=== PATIENT | male | born 1945 | race Caucasian/White ===

== ENCOUNTER 2025-05-09 13:15 | Inpatient (IN) | payer MEDICARE, OTHER ==
[~2025-05-09] VITALS: Ht 170.2 cm; Wt 59.0 kg
[2025-05-09] MEDS ORDERED: MAGN400T40 PO (13:34)
[2025-05-09] MEDS ORDERED: MAGN400O6 PO (13:34)
[2025-05-09] MEDS ORDERED: NA P133E RC (13:34)
[2025-05-09] MEDS ORDERED: ACET325C7 PO (13:34)
[2025-05-09] MEDS ORDERED: AMLO2.5T4 PO (13:34)
[2025-05-09] MEDS ORDERED: BISA10SU61 RC (13:34)
[2025-05-09] MEDS ORDERED: ACET-2605 PO (13:34)
[2025-05-09] MEDS ORDERED: MULT-213 PO (13:34)
[2025-05-09] MEDS ORDERED: CLON0.1T PO (13:34)
[2025-05-09] MEDS ORDERED: FAMO10TA41 PO (13:34)
[2025-05-09] MEDS ORDERED: LORA10CA PO (13:34)
[2025-05-09] MEDS ORDERED: DOCU-141 PO (13:34)
[2025-05-09] MEDS ORDERED: CHOL10005 PO (13:34)
[2025-05-09] MEDS ORDERED: SENN1TAB59 PO (13:34)
[2025-05-09] MEDS ORDERED: SODI15OR6 PO (13:34)
[2025-05-09] MEDS ORDERED: EMPA25TA PO (13:34)
[2025-05-09] MEDS ORDERED: NITR0.4T48 SL (13:34)
[2025-05-09] MEDS ORDERED: METF-442 PO (13:34)
[2025-05-09] MEDS ORDERED: ATOR10TA PO (13:34)
[2025-05-09] MEDS ORDERED: DIVA125T2 PO ×2 (13:34)
[2025-05-09] MEDS ORDERED: ASPI81TA31 PO (13:34)
[2025-05-09] MEDS ORDERED: LORAZEPAM 0.5 MG TABLET ONE (19:55)
[2025-05-09] MEDS: LORAZEPAM 0.5 MG TABLET PO ONE (20:00)
[2025-05-10] MEDS ORDERED: LORAZEPAM 0.5 MG TABLET PO PRN
[2025-05-10] MEDS ORDERED: TEMAZEPAM 7.5 MG CAPSULE PO PRN
[2025-05-10] MEDS ORDERED: MAG HYDROX/AL HYDROX/SIMETH 30 ML LIQUID UDC PO PRN
[2025-05-10] MEDS ORDERED: LORAZEPAM 1 MG TABLET PO PRN
[2025-05-10] MEDS ORDERED: MAGNESIUM HYDROXIDE 30 ML LIQUID UDC PO PRN
[2025-05-10] MEDS: TEMAZEPAM 7.5 MG CAPSULE PO PRN (00:16)
[2025-05-10] MEDS: ACETAMINOPHEN 325 MG TABLET PO PRN (00:16)
[2025-05-10 02:09] VITALS: BP 97/52; TEMP 97.4; O2SAT 97
[2025-05-10 08:00] VITALS: BP 127/75; TEMP 98; O2SAT 95
[2025-05-10 08:17] LABS: ASPARTATE AMINOTRANSFERASE 8 U/L (15-37); CREATININE 0.6 mg/dL (0.6-1.3); SODIUM SERUM 139 mmol/L (136-145); TOTAL PROTEIN, SERUM 6.1 g/dL (6.4-8.2); UREA NITROGEN, BLOOD 17 mg/dL (7-18)
[2025-05-10] MEDS ORDERED: BISACODYL 10 MG SUPP.RECT RC PRN (14:00)
[2025-05-10] MEDS ORDERED: SENN-18 PO (14:35)
[2025-05-10] MEDS ORDERED: FAMO20TA8 PO (14:37)
[2025-05-10 16:07] VITALS: BP 140/70; TEMP 98.2; O2SAT 95
[2025-05-10] MEDS: OXCARBAZEPINE 150 MG TABLET PO SCH (17:13)
[2025-05-10] MEDS: METFORMIN HCL 500 MG TABLET PO SCH (17:14)
[2025-05-10 19:48] VITALS: BP 140/88; TEMP 98; O2SAT 96
[2025-05-10] MEDS: ATORVASTATIN 10 MG TABLET PO SCH (20:57)
[2025-05-10] MEDS: SENNOSIDES 1 TABLET PO SCH (20:58)
[2025-05-10] MEDS: QUETIAPINE FUMARATE 25 MG TABLET PO SCH (20:58)
[2025-05-10] MEDS: LORAZEPAM 0.5 MG TABLET PO PRN (20:58)
[2025-05-10] MEDS ORDERED: SENNOSIDES/DOCUSATE SODIUM TABLET PO SCH (21:00)
[2025-05-11] MEDS: FAMOTIDINE 20 MG TABLET PO SCH (07:41)
[2025-05-11 08:14] VITALS: BP 106/61; TEMP 97.8; O2SAT 98
[2025-05-11] MEDS: DOCUSATE SODIUM 100 MG CAPSULE PO SCH (08:58)
[2025-05-11] MEDS: ASPIRIN 81 MG TAB.CHEW PO SCH (08:59)
[2025-05-11] MEDS: CHOLECALCIFEROL 1,000 UNIT TABLET PO SCH (08:59)
[2025-05-11] MEDS: MULTIVIT, IRON, MIN NO. 8, FA TABLET PO SCH (08:59)
[2025-05-11] MEDS ORDERED: Medication Not On Formulary EA (Famotidine (Pepcid Ac) 10 MG) PO SCH (09:00)
[2025-05-11] MEDS ORDERED: Medication Not On Formulary EA (Multivitamins W-Minerals (Multivitamin With Minerals) 1 PO SCH (09:00)
[2025-05-11] MEDS: SODIUM POLYSTYRENE SULFONATE 15 G/60 ML LIQUID UDC PO SCH (11:12)
[2025-05-11] MEDS: EMPAGLIFLOZIN 25 MG TABLET PO SCH (11:13)
[2025-05-11 16:56] VITALS: BP 112/60; TEMP 98.2; O2SAT 95
[2025-05-11 20:17] VITALS: BP 110/58; TEMP 97.8; O2SAT 96
[2025-05-12 08:32] VITALS: BP 105/66; TEMP 97.8; O2SAT 98
[2025-05-12 16:36] VITALS: BP 129/74; TEMP 97.8; O2SAT 96
[2025-05-12 19:59] VITALS: BP 120/72; TEMP 97.6; O2SAT 93
[2025-05-13 07:44] VITALS: BP 106/61; TEMP 97.9; O2SAT 96
[2025-05-13] MEDS: GLUCERNA SHAKE 237 ML CAN PO SCH (09:39)
[2025-05-13] MEDS: DIVALPROEX SPRINKLE 125 MG CAP.SPRINK PO SCH ×2 (13:44→20:29)
[2025-05-13 15:17] VITALS: BP 137/74; TEMP 98.5; O2SAT 95
[2025-05-13 19:41] VITALS: BP 98/60; TEMP 98; O2SAT 94
[2025-05-14 08:12] VITALS: BP 151/58; TEMP 98.2; O2SAT 98
[2025-05-14 15:42] VITALS: BP 119/68; TEMP 98; O2SAT 98
[2025-05-14 19:47] VITALS: BP 152/80; TEMP 97
[2025-05-15 07:30] VITALS: BP 129/74; TEMP 98; O2SAT 96
[2025-05-15 15:58] VITALS: BP 131/67; TEMP 98; O2SAT 98
[2025-05-15 20:00] VITALS: BP 138/72; TEMP 97.6; O2SAT 95
[2025-05-15 22:01] LABS: *BILIRUBIN,URIN NEGATIVE (NEGATIVE); *BLOOD, URINE NEGATIVE (NEGATIVE); *CLARITY,URINE CLEAR (CLEAR); *COLOR,URINE YELLOW (YELLOW); *KETONES,URINE 1+ (NEGATIVE); *PROTEIN,URINE NEGATIVE (NEGATIVE); *UROBILINOGEN,URINE 1.0 E.U./dl (NORMAL); LEUKOCYTE ESTERASE ,URINE NEGATIVE (NEGATIVE); NITRITE, URINE NEGATIVE (NEGATIVE); UGLUCOSE 2+ (NEGATIVE)
[2025-05-15 22:53] LABS: SQUAMOUS EPITHELIAL CELL,UR FEW /HPF (NONE SEEN)
[2025-05-16 07:33] LABS: VALPROIC ACID 47 ug/mL (50-100)
[2025-05-16 09:04] VITALS: BP 144/74; TEMP 98; O2SAT 98
[2025-05-16 15:19] VITALS: BP 135/85; TEMP 98; O2SAT 96
[2025-05-16 20:00] VITALS: BP 121/74; TEMP 97.3; O2SAT 95
[2025-05-17 08:18] VITALS: BP 105/66; TEMP 98; O2SAT 96
[2025-05-17 16:46] VITALS: BP 138/73; TEMP 97.3; O2SAT 95
[2025-05-17 20:00] VITALS: BP 146/81; TEMP 97.7; O2SAT 96
[2025-05-18 08:20] VITALS: BP 122/66; TEMP 98; O2SAT 98
[2025-05-18 16:57] VITALS: BP 128/61; TEMP 98; O2SAT 98
[2025-05-18 20:05] VITALS: BP 164/92; TEMP 98.1; O2SAT 96
[2025-05-19 08:20] VITALS: BP 130/75; TEMP 98.1; O2SAT 96
== END 2025-05-19 13:00 | DRG 885 ==
LOC: ER 13:15 → GPS 13:40
PROVIDERS: ADMIT Psychiatry & Neurology Psychosomatic Medicine; ATTEND Nurse Practitioner Family
DX: F39 Unspecified mood [affective] disorder (principal); I11.0 Hypertensive heart disease with heart failure; E44.1 Mild protein-calorie malnutrition; I50.32 Chronic diastolic (congestive) heart failure; F03.94 Unspecified dementia, unspecified severity, with anxiety; F03.92 Unspecified dementia, unspecified severity, with psychotic disturbance; F03.93 Unspecified dementia, unspecified severity, with mood disturbance; G89.29 Other chronic pain; M25.562 Pain in left knee; Z68.20 Body mass index [BMI] 20.0-20.9, adult; K21.9 Gastro-esophageal reflux disease without esophagitis; E78.5 Hyperlipidemia, unspecified; E11.40 Type 2 diabetes mellitus with diabetic neuropathy, unspecified; Z79.84 Long term (current) use of oral hypoglycemic drugs; Z79.899 Other long term (current) drug therapy; Z87.891 Personal history of nicotine dependence; Z91.199 Patient's noncompliance with other medical treatment and regimen due to unspecified reason
CPT/HCPCS: 36415; 70450; 71045; 80164; 87086; 93005